=== PATIENT | male | born 1985 | race Caucasian/White ===

== ENCOUNTER → 2021-05-04 11:09 | Outpatient (BNVA) | payer BC, SELFPAY | PROVIDERS: Family Provider Internal Medicine; PCP Internal Medicine; Visit Provider Nurse Practitioner Family | DX: Z20.822 Contact with and (suspected) exposure to COVID-19 (principal) | CPT/HCPCS: 87635 ==

== ENCOUNTER → 2021-06-19 14:31 | Outpatient (BNVA) | payer BC, SELFPAY | PROVIDERS: Family Provider Internal Medicine; PCP Internal Medicine; Visit Provider Dermatology | DX: L30.1 Dyshidrosis [pompholyx] (principal); D48.9 Neoplasm of uncertain behavior, unspecified; B88.0 Other acariasis | CPT/HCPCS: 87220 ==

== ENCOUNTER 2024-01-17 17:53 | Emergency (ER) | payer OTHER, SELFPAY ==
[2024-01-17 17:57] VITALS: BP 159/120; PULSE 118; TEMP 37.3; O2SAT 97; BMI 47.9
--- NOTE | 2024-01-17 18:13 | W.ED.EAR ---
Documented by User: [email or web address] 01/17/24 18:19 HPI - Ear Problem General: Chief complaint: Ear Stated complaint: sinus pain, right ear pain Time Seen by Provider: 01/17/24 17:58 Source: patient Mode of arrival: ambulatory Limitations: no limitations History of Present Illness: Patient is a 38-year-old male presents to the emergency department complaining of upper respiratory symptoms. He was diagnosed with flu a approximately 1 to 2 weeks ago, and was seen in the walk-in clinic 2 days ago for symptoms on improving. There he was given Zyrtec and Flonase to take for presumed viral syndrome, but notes that his symptoms keep worsening. He is noting some nasal congestion and drainage of green mucus, right ear pain, facial pressure, and some chest congestion. He states he has been taking medications as prescribed, with minimal relief. He denies any fever, breathing difficulties, or any other symptoms at this time. MD Complaint: other ( Upper respiratory symptoms ) Duration: constant Severity: moderate Relieving factors: nothing Context: recent illness (Flu a) Associated symptoms: Reports ear or mastoid pain; Denies fever(s), headache(s) or neck pain Treatment prior to arrival: other (Zyrtec and Flonase) Review of Systems General: Reports: 10 or more systems reviewed and unremarkable except in HPI and below Const: Denies: fever(s), chills or fatigue Eyes: Denies: change in vision ENMT: Reports: ear or mastoid pain, nasal discharge, nasal congestion and sinus pain; Denies: throat pain Card: Denies: chest pain, palpitations, swelling of feet/ankles or lightheadedness Resp: Reports: chest congestion; Denies: dyspnea, productive cough or wheezing GI: Denies: abdominal pain, nausea, vomiting, diarrhea or constipation : Denies: flank pain, difficulty urinating, dysuria or urinary frequency Musc: Denies: neck pain, back pain or joint pain Skin/Breast: Denies: rash Neuro: Denies: headache(s), numbness in extremities or weakness in extremities PFSH ED PFSH: Social History Alcohol intake: never Substance/Drug Use: never Physical Exam Const: COMMON NORMALS: no acute distress, patient oriented x3 and no limitations GENERAL APPEARANCE: cooperative, comfortable and well developed ORIENTATION/CONSCIOUSNESS: Yes awake, Yes oriented to person, Yes oriented to place and Yes oriented to time HENMT: COMMON NORMALS: normocephalic, atraumatic, hearing grossly normal bilaterally, external ears normal, EAC's normal and Normal external nose present HEAD & SCALP: normocephalic and atraumatic FACE & SINUS: normal facial exam and sinus tenderness maxillary (Right greater than left) NOSE: Normal external nose present, Normal nares present, No nasal polyps present and Abnormal mucous membranes and turbinates present erythematous EXTERNAL EAR: Yes external ears normal EXTERNAL AUDITORY CANAL: EAC's normal TYMPANIC MEMBRANE: TM abnormal TM laterality: bilateral erythematous MOUTH: Normal oral and palatal mucosa present THROAT: posterior oropharynx normal and tonsils normal Eye: COMMON NORMALS: Equal, round and reactive pupils present, EOMs intact bilaterally and conjunctivae normal CONJUNCTIVA: Yes conjunctivae normal PUPIL: Yes Equal, round and reactive pupils present Neck/C-Spine: COMMON NORMALS: full ROM, supple and no JVD Resp: COMMON NORMALS: normal respiratory effort, No retractions, No use of accessory muscles and clear to auscultation bilaterally AUSCULTATION: clear to auscultation bilaterally Cardio: COMMON NORMALS: no JVD, regular rate, regular rhythm, No clicks present (Cardio), No murmurs present (Cardio) and No rub (Cardio) RATE: regular rate RHYTHM: regular rhythm Extremity: COMMON NORMALS: normal to inspection, full ROM and capillary refill normal Neuro: COMMON NORMALS: patient oriented x3, moves all extremities, no focal motor deficits and no sensory deficits noted SENSORIUM/ORIENTATION: Yes oriented to person, Yes oriented to place and Yes oriented to time Psych: COMMON NORMALS: mental status grossly normal and Normal thought process present THOUGHT PROCESS: Normal thought process present Skin: COMMON NORMALS: no rashes or lesions noted GENERAL SKIN EXAM: no rashes or lesions noted Course Vital Signs: Vital signs: Vital Signs Temperature 99.2 F 01/17/24 17:57 Pulse Rate 118 H 01/17/24 17:57 Blood Pressure 159/120 01/17/24 17:57 Pulse Oximetry 97 01/17/24 17:57 Oxygen Delivery Me thod Room Air 01/17/24 17:57 MDM - Ear Medical Decision Making This patient was seen and evaluated in the emergency department today for worsening upper respiratory symptoms. Diagnosed with flu a 2 weeks ago, and seen in urgent care 2 days ago, his symptoms of not been improving. He reported to me a productive nasal drainage and worsening of his facial pain and ear pain. Due to failed outpatient treatment, and clinical findings, I will treat the patient for a bacterial sinusitis with Augmentin. His vitals were normal aside from a minimally elevated heart rate, likely due to to some dehydration. Informed the patient to drink plenty fluids and return precautions are given. No radiology studies performed this visit Discharge Plan Discharge Patient Disposition: Home Clinical Impression: Acute bacterial sinusitis Condition: Stable Prescriptions: New amoxicillin-pot clavulanate 875-125 mg tablet 1 tab PO BID 10 Days Qty: 20 0RF No Action fluticasone propionate [Flonase Allergy Relief] 50 mcg/actuation spray,suspension 2 spray intranasal DAILY Qty: 16 0RF Rx Instructions: administer into each nostril cetirizine [Zyrtec] 10 mg tablet 10 mg PO DAILY Qty: 30 0RF ibuprofen 800 mg tablet 800 mg PO Q8H PRN (Reason: pain) Qty: 30 0RF Discharge Orders: Discharge ED (Routine); Ordered 01/17/24 Ordered By: Gallito Saenz Referrals: Dewayne Martinez MD [Primary Care Provider] - Discharge Diet: Usual diet Discharge Activity: Increase activity as tolerated Patient Instructions: Sinusitis (ED) Activity Restrictions/Additional Instructions: Augmentin as prescribed. Continue taking your Zyrtec and Flonase as usual. Tylenol for any fevers. Plenty of fluids. Follow-up with your primary care provider. Return with any new or worsening. Coding Level of Care Code ED Substation Operator Chief for Chg Fwd Documented by User: [email or web address] Reece DO 01/18/24 04:59 HPI - Ear Problem General: Chief complaint: Ear Stated complaint: sinus pain, right ear pain Time Seen by Provider: 01/17/24 17:58 PFSH ED PFSH: Social History Alcohol intake: never Substance/Drug Use: never Course Vital Signs: Vital signs: Vital Signs Temperature 99.2 F 01/17/24 17:57 Pulse Rate 118 H 01/17/24 17:57 Blood Pressure 159/120 01/17/24 17:57 Pulse Oximetry 97 01/17/24 17:57 Oxygen Delivery Me thod Room Air 01/17/24 17:57 MDM - Ear Medical Decision Making This patient was seen and evaluated in the emergency department today for worsening upper respiratory symptoms. Diagnosed with flu a 2 weeks ago, and seen in urgent care 2 days ago, his symptoms of not been improving. He reported to me a productive nasal drainage and worsening of his facial pain and ear pain. Due to failed outpatient treatment, and clinical findings, I will treat the patient for a bacterial sinusitis with Augmentin. His vitals were normal aside from a minimally elevated heart rate, likely due to to some dehydration. Informed the patient to drink plenty fluids and return precautions are given. Chart reviewed. Discharge Plan Discharge Patient Disposition: Home Clinical Impression: Acute bacterial sinusitis Condition: Stable Prescriptions: New amoxicillin-pot clavulanate 875-125 mg tablet 1 tab PO BID 10 Days Qty: 20 0RF No Action fluticasone propionate [Flonase Allergy Relief] 50 mcg/actuation spray,suspension 2 spray intranasal DAILY Qty: 16 0RF Rx Instructions: administer into each nostril cetirizine [Zyrtec] 10 mg tablet 10 mg PO DAILY Qty: 30 0RF ibuprofen 800 mg tablet 800 mg PO Q8H PRN (Reason: pain) Qty: 30 0RF Discharge Orders: Discharge ED (Routine); Ordered 01/17/24 Ordered By: Gallito Saenz Referrals: Dewayne Martinez MD [Primary Care Provider] - Discharge Diet: Usual diet Discharge Activity: Increase activity as tolerated Patient Instructions: Sinusitis (ED) Activity Restrictions/Additional Instructions: Augmentin as prescribed. Continue taking your Zyrtec and Flonase as usual. Tylenol for any fevers. Plenty of fluids. Follow-up with your primary care provider. Return with any new or worsening. Coding Level of Care Code ED Substation Operator Chief for Rick Aceves
== END 2024-01-17 18:18 | disposition home or self-care (01) ==
PROVIDERS: Emergency Provider Physician Assistant; PCP Family Medicine
DX: J01.90 Acute sinusitis, unspecified (principal); B96.89 Other specified bacterial agents as the cause of diseases classified elsewhere
CPT/HCPCS: 99283